=== PATIENT | female | born 1965 | race Caucasian/White ===

== ENCOUNTER 2021-10-16 11:56 | Outpatient (CLI) | payer OTHER ==
[~2021-10-16 11:56] MED LIST: CIPRO500 MG PO; INTEGRA CAPSUL1 EACH PO; LEVSIN/SL0.125 MG PO; TYLENOL-CODEINE1 TAB PO
== END 2021-10-16 11:57 | disposition home or self-care (01) ==
LOC: LAB 11:56
PROVIDERS: ATTEND Obstetrics & Gynecology
DX: Z20.828 Contact with and (suspected) exposure to other viral communicable diseases (principal); Z20.818 Contact with and (suspected) exposure to other bacterial communicable diseases